=== PATIENT | female | born 1955 | race Caucasian/White ===

== ENCOUNTER → 2017-01-12 | Outpatient (CLI) | payer BC | LOC: BMCIMAGING 12:34 | PROVIDERS: ATTEND Internal Medicine | DX: R53.83 Other fatigue (principal); R05 Cough ==

== ENCOUNTER → 2017-03-26 | Outpatient (CLI) | payer BC | LOC: BMCIMAGING 15:07 | PROVIDERS: ATTEND Internal Medicine Endocrinology, Diabetes & Metabolism | DX: Z13.820 Encounter for screening for osteoporosis (principal); M81.0 Age-related osteoporosis without current pathological fracture; Z87.81 Personal history of (healed) traumatic fracture ==

== ENCOUNTER → 2018-04-10 | Outpatient (CLI) | payer BC | LOC: BMCIMAGING 13:37 | PROVIDERS: ATTEND Internal Medicine Endocrinology, Diabetes & Metabolism | DX: Z13.820 Encounter for screening for osteoporosis (principal); M85.89 Other specified disorders of bone density and structure, multiple sites; M81.0 Age-related osteoporosis without current pathological fracture; Z78.0 Asymptomatic menopausal state; Z82.62 Family history of osteoporosis ==

== ENCOUNTER → 2018-08-13 | Outpatient (CLI) | payer BC | LOC: FIMAGING 11:30 | PROVIDERS: ATTEND Physician Assistant | DX: Z09 Encounter for follow-up examination after completed treatment for conditions other than malignant neoplasm (principal); Z98.1 Arthrodesis status ==

== ENCOUNTER → 2018-09-19 | Outpatient (CLI) | payer BC | LOC: FIMAGING 10:20 | PROVIDERS: ATTEND Physician Assistant Surgical | DX: Z09 Encounter for follow-up examination after completed treatment for conditions other than malignant neoplasm (principal); S33.100A Subluxation of unspecified lumbar vertebra, initial encounter; Z98.1 Arthrodesis status ==

== ENCOUNTER → 2018-12-20 | Outpatient (CLI) | payer BC | LOC: FIMAGING 11:20 | PROVIDERS: ATTEND Physician Assistant | DX: M21.371 Foot drop, right foot (principal); M43.06 Spondylolysis, lumbar region; M54.41 Lumbago with sciatica, right side ==

== ENCOUNTER → 2019-03-10 | Outpatient (CLI) | payer BC | LOC: EMCIMAGING 09:24 | PROVIDERS: ATTEND Internal Medicine Endocrinology, Diabetes & Metabolism | DX: Z13.820 Encounter for screening for osteoporosis (principal); M81.0 Age-related osteoporosis without current pathological fracture; Z98.1 Arthrodesis status | CPT/HCPCS: 77080-PN ==